=== PATIENT | male | born 1985 | race Two or more races ===

== ENCOUNTER → 2023-10-10 14:04 | Outpatient (REF) | payer BC, SELFPAY | LOC: RAD 14:04 | PROVIDERS: ATTENDING PHYSICIAN Nurse Practitioner Family; FAMILY PHYSICIAN Nurse Practitioner Primary Care | DX: M25.532 Pain in left wrist (principal) | CPT/HCPCS: 73110 ==

== ENCOUNTER 2024-10-20 09:39 | Emergency (ER) | payer OTHER, SELFPAY ==
[2024-10-20 09:45] VITALS: BP 176/115
[2024-10-20 11:01] VITALS: BP 166/112; BMI 27.2
[2024-10-20 11:17] LABS: % Basophils 0.5 % (0-2); % Eosinophils 0.9 % (0-6); % Immature Granulocytes 0.2 % (0-0.5); % Lymphocytes 29.1 % (20.5-51.1); % Monocytes 8.6 % (1.7-9.3); % Neutrophils 60.7 % (42.2-75.2); Absolute Eosinophils 0.1 10^3/uL (0-0.7); Absolute Lymphocytes 1.7 10^3/uL (1.2-3.4); Absolute Monocytes 0.5 10^3/uL (0.1-0.6); Absolute Neutrophils 3.5 10^3/uL (1.4-6.5); Hematocrit 43.7 % (39.0-52.0); Hemoglobin 16.2 g/dL (13.0-18.0); Mean Corp Hgb Conc. 37.1 g/dL (33.0-37.0); Mean Corpuscular Hgb 32.3 pg (27.0-31.0); Mean Corpuscular Volume 87.1 fL (80.0-94.0); Mean Platelet Volume 9.5 fL (7.4-10.4); Nucleated Red Blood Cells % 0 % (-); Platelet Count 197 10^3/uL (130-400); Red Blood Cell Count 5.02 10^6/uL (4.70-6.10); White Blood Cell Count 5.7 10^3/uL (4.8-10.8)
[2024-10-20 11:29] LABS: ALT (SGPT) 58 U/L (0-50); AST (SGOT) 29 U/L (17-59); Albumin 4.9 g/dl (3.5-5.0); Alkaline Phosphatase 54 U/L (38-126); Blood Urea Nitrogen 17 mg/dl (9-20); Calcium 9.9 mg/dl (8.4-10.2); Carbon Dioxide 33 mmol/L (22-30); Chloride 102 mmol/L (98-107); Estimated Creatinine Clearance > 125 ml/min; Glucose 97 mg/dl (70-99); Potassium 4.5 mmol/L (3.5-5.1); Sodium 140 mmol/L (135-145); Total Bilirubin 1.3 mg/dl (0.2-1.3); Total Protein 7.7 g/dl (6.3-8.2); eGFR > 60.00
--- NOTE | 2024-10-20 11:30 | ED.GENMED ---
History of Present Illness
General
Chief Complaint: Blood Pressure Problem
Time Seen by Provider: 10/20/24 11:00
History of Present Illness
History of Present Illness:
38-year-old male presents to the emergency department for evaluation of central chest pressure beginning yesterday. Symptoms are not worse with exertion or body position. He reports that is centrally located and nonradiating. No modifying
factors. No associated fever, chills, sweats, nausea, vomiting, or diarrhea. Began while seated at a desk at work yesterday. He does note that he was noncompliant with his antihypertensive therapy for greater than 1 year, recently restarted on
amlodipine and lisinopril earlier this week. Has a follow-up appoint with his primary care physician early next week and is scheduled for an echocardiogram mid next week
Review of Systems
Review of Systems
Allergies reviewed?: Yes
All Other Systems: ROS reviewed and negative except as documented in HPI and ROS
Phy Exam
Physical Exam
Physical Exam:
GEN: Well appearing, NAD, WDWN
HEENT: Oral mucosa moist, no scleral icterus
Cardiac: Regular rate and rhythm, no murmurs
Lung: No respiratory distress, no tachypnea, lungs clear to auscultation bilaterally
MSK: No gross deformity or injuries
Skin: Good color, no pallor or jaundice, no rashes
Neuro: AO x3, moves all extremities freely
Psych: Calm, cooperative
Course
Orders/Labs/Results
Orders:
Orders
10/20/24 09:40
ECG [Electrocardiogram (*1)] Urgent
Reason for Study: Chest Pain
EKG- Treatment ONCE
10/20/24 11:09
Complete Blood Count/With Diff Urgent
Comprehensive Metabolic Panel Urgent
Troponin I Urgent
10/20/24 11:52
CR Chest - 2 Views Urgent
Comment:
Reason For Exam: chest tightness
Abnormal Lab Results
10/20/24
11:09
MCH 32.3 H pg
(27.0-31.0)
MCHC 37.1 H g/dL
(33.0-37.0)
Carbon Dioxide 33 H mmol/L
(22-30)
ALT 58 H U/L
(0-50)
10/20/24 11:09
10/20/24 11:09
Vital Signs
Initial and Last Documented VS:
Initial Vital Signs
Temp Pulse Resp BP Pulse Ox
98.3 F 84 16 176/115 100
10/20/24 09:45 10/20/24 09:45 10/20/24 09:45 10/20/24 09:45 10/20/24 09:45
Last Documented Vital Signs
Temp Pulse Resp BP Pulse Ox
98.3 F 68 14 145/99 98
10/20/24 09:45 10/20/24 12:15 10/20/24 12:15 10/20/24 12:00 10/20/24 12:15
MDM/Problems Addressed
MDM/Problems Addressed:
Workup reassuring, no e/o ACS. Recommend continued PCP f/u
*Critical Care Note
Total Time (30-74mins, 75-104mins- exclusive of procedures): Not Applicable
ED Attending Note
-
Portions of this chart may have been created with voice recognition software.� Occasional wrong word or��sound alike� substitutions may have occurred due to the inherent limitations of voice recognition software.
Discharge Plan
Departure
Patient Disposition: Home (Routine Discharge)
Date of Disposition: 10/20/24
Time of Disposition: 12:24
Patient with high blood pressure during this ER visit?: Yes
Discharge Problem:
Hypertension, uncontrolled
Instructions: High Blood Pressure (DC)
Referrals:
Kaela Preciado CRNP [Family Provider] -
Activity Restrictions/Additional Instructions:
Continue with your outpatient follow up echo and primary doctor follow up
Interventions
Interventions:
*Risk Screen - Suicide Last Done: 10/20/24 12:30
*General Assessment Last Done: 10/20/24 11:01
*Neglect/Abuse Screening Last Done: 10/20/24 12:30
*ED- Fall Risk Assessment Last Done: 10/20/24 11:01
*ED COVID-19 Vaccine History Last Done: 10/20/24 11:01
*Nursing Disposition Last Done: 10/20/24 12:31
ED- Cardiac Assessment Last Done: 10/20/24 11:02
ED- Neurological Assessment Last Done: 10/20/24 11:02
ED- Pulmonary Assessment Last Done: 10/20/24 11:02
Discharge Date and Time
Discharge Date/Time: 10/20/24 12:39
Print Language: MALIAN
[2024-10-20 11:40] LABS: Troponin I < 0.012 ng/ml
[2024-10-20 11:41] VITALS: BP 147/89
[2024-10-20 12:00] VITALS: BP 145/99
== END 2024-10-20 12:39 | disposition home or self-care (01) ==
LOC: EMR 09:39
PROVIDERS: Physician Assistant; EMERGENCY PHYSICIAN Emergency Medicine; FAMILY PHYSICIAN Nurse Practitioner Primary Care
DX: R07.89 Other chest pain (principal); I10 Essential (primary) hypertension
CPT/HCPCS: 99283; 71046; 80053; 84484; 85025; 93005

== ENCOUNTER → 2024-10-25 14:01 | Outpatient (REF) | payer OTHER, SELFPAY | LOC: RCS 14:01 | PROVIDERS: ATTENDING PHYSICIAN Nurse Practitioner Primary Care | DX: I10 Essential (primary) hypertension (principal); R01.1 Cardiac murmur, unspecified | CPT/HCPCS: 93005; 93306 ==